=== PATIENT | female | born 1980 | race Caucasian/White ===

== ENCOUNTER 2020-06-03 20:27 | Inpatient (IN) | payer OTHER ==
[~2020-06-03] VITALS: Ht 172.7 cm; Wt 175.5 kg
--- NOTE | 2020-06-03 20:51 | NUR ---
PT CAME INTO ED THIS EVENING DUE TO "PAIN IN MY GALLBLADDER". REPORTS LEFT SIDED UPPER ABDOMINAL QUADRANT PAIN FOR "AWHILE NOW". SAW PCP LISA MARTE FOR IT AND SCHEDULED IMAGING FOR JUNE. PT SAYS PAIN BECAME SHARP STABBING AND WORSE THIS EVENING AND RADIATING TO BACK LEADING TO HER COMING INTO ED. PT ANALY, RESTING ON GURNEY, APPEARS COMFORTABLE, PLACED ON SPO2/BP/ECG MONITORING AT THIS TIME. PT IS TACHY ON MONITOR. PROVIDED WARM BLANKETS FOR COMFORT, BED IN LOWEST, RAILS ENGAGED, CALLED LIGHT ON LAP. WCTM. Addendum: 06/03/20 at 2153 by ROSSI right upper abdominal pain, not left
[2020-06-03] MEDS ORDERED: ONDANSETRON 2MG/ML, 2ML IVPush ONE (21:00)
[2020-06-03] MEDS ORDERED: MORPHINE SULFATE 4 MG/ML, 1ML IVPush ONE (21:00)
[2020-06-03] MEDS ORDERED: ONDANSETRON 2MG/ML, 2ML ONE (21:22)
[2020-06-03] MEDS ORDERED: MORPHINE SULFATE 4 MG/ML, 1ML ONE (21:22)
[2020-06-03 21:23] LABS: BASOPHILS % (AUTO) 1 % (0-1); EOSINOPHILS % (AUTO) 1 % (1-7); LYMPHOCYTES % (AUTO) 20 % (22-44); MEAN CORPUSCULAR HEMOGLOBIN 28.8 pg (27.0-34.8); MEAN CORPUSCULAR HGB CONC 33.6 g/dL (32.4-35.8); MEAN PLATELET VOLUME 8.1 fL (7.4-10.4); MONOCYTES % (AUTO) 6 % (2-9); NEUTROPHILS % (AUTO) 73 % (42-75); PLATELET COUNT 293 x10^3/uL (130-400); RED CELL DISTRIBUTION WIDTH 16.2 % (9.6-15.2)
[2020-06-03 21:24] LABS: MD NO
[2020-06-03 21:35] LABS: ALANINE AMINOTRANSFERASE 85 U/L (12-78); ALBUMIN 3.1 g/dL (3.4-5.0); ANION GAP 8 mmol/L (5-15); CALCIUM 8.7 mg/dL (8.5-10.1); CHLORIDE 106 mmol/L (98-107)
[2020-06-03 21:38] LABS: ALKALINE PHOSPHATASE 126 U/L (45-117); BILIRUBIN,TOTAL 0.2 mg/dL (0.2-1.0); CREATININE 0.83 mg/dL (0.55-1.02); TOTAL PROTEIN 7.2 g/dL (6.4-8.2)
--- NOTE | 2020-06-03 21:50 | NUR ---
pt medicated per mar for pain, nad, appears more comfortable at this time, bed in lowest, pt sitting at edge, at bs. us at bs at this time. wctm.
--- NOTE | 2020-06-03 23:36 | NUR ---
PT RESTING ON GUYUMIKO, NAD, APPEARS COMFORTABLE, STATES 2/10 PAIN AT THIS TIME. WAITING FOR CT, NO OTHER CHANGES IN CONDITION, AT BS, BED IN LOWEST, RAILS ENGAGED, CALL LIGHT ON LAP, WCTM.
[2020-06-03] MEDS ORDERED: OMNIPAQUE 350 MG/ML, 150 ML BOTTLE ONE (23:53)
--- NOTE | 2020-06-04 00:01 | NUR ---
pt back from ct at this time. nad, no change in condition, at bs. bed in [facility], rails engaged, call light on lap, wctm. waiting for ct read.
[2020-06-04] MEDS ORDERED: PIPERACILLIN/TAZO/PMX 3.375GM 50 ML ONE (00:25)
[2020-06-04] MEDS ORDERED: PIPERACILLIN/TAZO/PMX 3.375GM 50 ML IV ONE (00:30)
--- NOTE | 2020-06-04 01:48 | NUR ---
pt resting on jenae fry, no change in condition, waiting for surg consult. wctm.
[2020-06-04] MEDS ORDERED: LOSA1TAB19 PO (01:57)
[2020-06-04] MEDS ORDERED: ESCI20TA10 PO (01:57)
--- NOTE | 2020-06-04 02:20 | NUR ---
Report given to ANA Lord. Patient to be transferred to room [facility]. Addendum: 06/04/20 at 0232 by [email or web address] Report to ANA Wharton.
[2020-06-04] MEDS ORDERED: SODIUM CHLORIDE 0.9% 1,000 ML IV SCH (02:30)
[2020-06-04] MEDS ORDERED: ONDANSETRON 2MG/ML, 2ML IVPush PRN (02:30)
[2020-06-04] MEDS ORDERED: hydrALAzine 20 MG/ML, 1ML IVPush PRN (02:30)
[2020-06-04] MEDS ORDERED: ACETAMINOPHEN 325 MG TABLET PO PRN ×2 (02:30→08:00)
--- NOTE | 2020-06-04 02:33 | NUR ---
Rapid COVID swab collected and walked to lab.
[2020-06-04 02:41] VITALS: BP 156/81
[2020-06-04] MEDS: morphine SULFATE 10 MG/ML, 1ML IVPush PRN ×2 (02:54→06:48)
[2020-06-04] MEDS ORDERED: CEFAZOLIN PMX 2GM/50ML 50 ML IVPB SCH (03:00)
[2020-06-04] MEDS ORDERED: CEFAZOLIN 2,000 MG in DEXTROSE 5% 50 ML IV SCH (03:00)
[2020-06-04] MEDS ORDERED: CEFAZOLIN 2,000 MG in SODIUM CHLORIDE 0.9% 50 ML IV SCH (03:00)
[2020-06-04 03:38] VITALS: BP 132/80
[2020-06-04 05:02] LABS: BASOPHILS % (AUTO) 1 % (0-1); EOSINOPHILS % (AUTO) 1 % (1-7); LYMPHOCYTES % (AUTO) 25 % (22-44); MEAN CORPUSCULAR HEMOGLOBIN 28.6 pg (27.0-34.8); MEAN CORPUSCULAR HGB CONC 33.1 g/dL (32.4-35.8); MEAN PLATELET VOLUME 8.2 fL (7.4-10.4); MONOCYTES % (AUTO) 9 % (2-9); NEUTROPHILS % (AUTO) 64 % (42-75); PLATELET COUNT 306 x10^3/uL (130-400); RED CELL DISTRIBUTION WIDTH 16.5 % (9.6-15.2)
[2020-06-04 05:17] LABS: CALCIUM 8.6 mg/dL (8.5-10.1); CHLORIDE 107 mmol/L (98-107)
[2020-06-04 05:24] LABS: ALANINE AMINOTRANSFERASE 82 U/L (12-78); ALBUMIN 3.4 g/dL (3.4-5.0); ALKALINE PHOSPHATASE 121 U/L (45-117); ANION GAP 4 mmol/L (5-15); BILIRUBIN,TOTAL 0.3 mg/dL (0.2-1.0); CREATININE 0.85 mg/dL (0.55-1.02); TOTAL PROTEIN 7.4 g/dL (6.4-8.2)
[2020-06-04 05:32] LABS: MD NO
[2020-06-04 07:55] VITALS: BP 112/62
[2020-06-04] MEDS ORDERED: CEFTRIAXONE 2 GM in DEXTROSE 5% 50 ML IVPB SCH (08:00)
[2020-06-04] MEDS ORDERED: METRONIDAZOLE PMX 500MG/100ML 100 ML IV SCH (08:00)
[2020-06-04] MEDS ORDERED: CARVEDILOL 3.125 MG TABLET PO SCH (08:00)
[2020-06-04] MEDS ORDERED: OXYcodone IR 5MG TABLET PO PRN (08:00)
[2020-06-04] MEDS ORDERED: morphine SULFATE 10 MG/ML, 1ML IVPush PRN (08:30)
[2020-06-04] MEDS ORDERED: FAMOTIDINE 20 MG TABLET PO SCH (09:00)
[2020-06-04] MEDS ORDERED: LACTOBACILLUS CHEW TABLET PO SCH (09:00)
[2020-06-04] MEDS ORDERED: NICOTINE 7 MG/24 HR PATCH.TD24 TD SCH (09:00)
[2020-06-05] MEDS ORDERED: SODIUM CHLORIDE 0.9% 1,000 ML IV SCH (02:30)
== END 2020-06-04 11:02 | disposition left against medical advice (07) | DRG 445 ==
LOC: ED 23:33 → EDIP 06-04 01:58 → 3N 06-04 02:38
PROVIDERS: ATTEND Internal Medicine
DX: K80.00 Calculus of gallbladder with acute cholecystitis without obstruction (principal); Z68.43 Body mass index [BMI] 50.0-59.9, adult; E66.01 Morbid (severe) obesity due to excess calories; F17.210 Nicotine dependence, cigarettes, uncomplicated; I10 Essential (primary) hypertension; K76.0 Fatty (change of) liver, not elsewhere classified; F41.9 Anxiety disorder, unspecified; F32.9 Major depressive disorder, single episode, unspecified; R73.9 Hyperglycemia, unspecified; Z88.8 Allergy status to other drugs, medicaments and biological substances
CPT/HCPCS: 36415; 74177; 76700; 80053; 83690; 84703; 85025; J2270; J2405; Q9967; 83036; 87635; 96374; 96375; 99285; G0378; J0690; J0696; J2543; J7030